=== PATIENT | female | born 1960 | race Caucasian/White ===

== ENCOUNTER 2024-11-11 04:31 | Day surgery (SDC) | payer OTHER ==
[2024-09-29 13:28] VITALS: BMI 30.6
[2024-11-11 09:19] VITALS: TEMP 98
[2024-11-11 09:28] VITALS: RESP 18
[2024-11-11 09:45] VITALS: BP 119/72; PULSE 78
== END 2024-11-11 10:00 | disposition home or self-care (01) ==
LOC: JASU-ENDO 04:31
PROVIDERS: ATTEND Internal Medicine Gastroenterology
PROC: 0DBK8ZX Excision of Ascending Colon, Via Natural or Artificial Opening Endoscopic, Diagnostic (ICD-10-PCS; principal; 2024-11-11 08:00)
DX: Z12.11 Encounter for screening for malignant neoplasm of colon (principal); D12.2 Benign neoplasm of ascending colon; K57.30 Diverticulosis of large intestine without perforation or abscess without bleeding; K64.8 Other hemorrhoids
CPT/HCPCS: 88305-TC